=== PATIENT | male | born 2000 | race Caucasian/White ===

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

== ENCOUNTER 2020-08-20 12:12 | Emergency (ER) | payer OTHER ==
[~2020-08-20] VITALS: Ht 190.5 cm; Wt 78.5 kg
[2020-08-20] MEDS ORDERED: APAP W/CODEINE1 TA2 PO ×4 (14:18→14:30)
[2020-08-20] MEDS ORDERED: IBUPROFEN 600600 M1 PO ×2 (14:19→14:26)
[2020-08-20] MEDS ORDERED: PREDNISONE 20 M20 MG PO ×2 (14:19→14:26)
[2020-08-20 15:00] VITALS: BP 114/65
== END 2020-08-20 15:01 | disposition home or self-care (01) ==
LOC: M.ERS 12:12
DX: M54.5 Low back pain (principal); J45.909 Unspecified asthma, uncomplicated